=== PATIENT | male | born 1990 | race Caucasian/White ===

== ENCOUNTER 2017-11-29 16:02 | Emergency (ER) | payer OTHER, SELFPAY ==
[2017-11-29 16:03] VITALS: BP 163/86; PULSE 101; RESP 14; TEMP 36.8; O2SAT 99; BMI 23.5
--- NOTE | 2017-11-29 16:07 | EKG12_ITS ---
Test Reason : Blood Pressure : / mmHG Vent. Rate : 107 BPM Atrial Rate : 107 BPM P-R Int : 146 ms QRS Dur : 090 ms QT Int : 328 ms P-R-T Axes : 083 077 069 degrees QTc Int : 437 ms Sinus tachycardia Otherwise normal ECG Confirmed by ROBBIE BIGGS, JOHANNA ([id number]), desk editor JORGE CASTRO ([id number] on 12/02/2017 1:15:43 PM Referred By: ANURADHA Confirmed By:JOHANNA AVALOS MD
--- NOTE | 2017-11-29 16:26 | NURSING ---
NO OLD EKGS
[2017-11-29 16:32] LABS: Absolute Lymphocyte Count 3.74 X10^3/ul (0.83-4.51); Absolute Neutrophil Count 7.8 X10^3/uL (2.0-7.7); Basophil# 0.04 X10^3/uL; Basophil% 0.3 % (0-1); Eosinophil# 0.16 X10^3/uL; Eosinophils% 1.2 % (0-5); Hematocrit 48.2 % (40-54); Hemoglobin 15.9 g/dl (13.0-16.5); Lymphocyte # 3.74 X10^3/ul (4.0); Lymphocyte % 28.5 % (19-41); Mean Corpuscular Hgb 29.6 pg (27.0-32.0); Mean Corpuscular Volume 89.6 fL (80-94); Monocyte# 1.31 X10^3/uL; Neutrophil # 7.84 X10^3/uL (2.7-7.7); Neutrophil % 59.9 % (47-70); Platelet Count 266 K/mm3 (150-450); RBC Distribution Width CV 12.5 % (11.6-14.6); RBC Distribution Width SD 40.6 fl (35.1-43.9); Red Blood Count 5.38 M/mm3 (4.6-6.2); White Blood Count 13.1 K/mm3 (4.4-11.0)
[2017-11-29 16:33] LABS: POSITIVE COUNT NO; POSITIVE DIFFERENTIAL NO; POSITIVE MORPHOLOGY NO
--- NOTE | 2017-11-29 16:46 | RAD_ITS ---
STUDY: X-RAY CHEST REASON FOR EXAM: Male, 27 years old. Substernal chest pain TECHNIQUE: Single AP portable view of the chest. COMPARISON: None. FINDINGS: The lungs are clear and expanded. There is no demonstrated pleural abnormality. Normal size heart. Normal mediastinum and lonny. Normal visualized pulmonary arteries. Normal visualized aortic arch and descending thoracic aorta. Normal visualized thoracic spine. Normal visualized ribs, clavicles, and shoulders. There is no demonstrated abnormality of the visualized soft tissue structures of the upper abdomen. RAD/Chest 1 View (Portable) IMPRESSION: Normal x-ray examination of the chest. Electronically Signed: Hugh Lazaro MD at 17:21 EDT , Service support ,
[2017-11-29 16:47] LABS: Anion Gap 8 (5-15); BUN 19 mg/dL (7-18); BUN/Creat Ratio 18.6 RATIO (10-20); Calcium,Total 9.3 mg/dL (8.5-10.1); Chloride 105 mmol/L (98-107); Creatinine, Serum 1.02 mg/dL (0.70-1.30); EST Glomerular Filtration Rate 95 mL/min (>60); Est Glom Filt Rate - Afr Amer 114 mL/min (>60); Estimated Creatinine Clearance 121.51 ml/min; Glucose 96 mg/dL (74-106); Potassium 3.9 mmol/L (3.5-5.1); Sodium Level 138 mmol/L (136-145)
[2017-11-29 17:03] VITALS: BP 119/80; PULSE 84; RESP 22; O2SAT 99
--- NOTE | 2017-11-29 17:03 | ED.VISSUMM ---
- ER Visit Summary Date of Service: 11/29/17 Chief Complaint: Chest pain History of Present Illness: The patient is a 27 M who woke at 4 AM this morning with right-sided anterior chest pain. He was laying on his right side at the time. Patient states he rolled to his back where he noted increased pain with deep breath, but did not note shortness of breath. Pain is persisted throughout the day. He describes generalized ache across the chest with intermittent sharp pain, worse with deep breath. There is no pain with movement of his arms. There has been no recent injury. Patient has no DVT or PE risk factors. He has no cardiac risk factors. Physical Examination: Blood pressure in triage is 163/86, other vitals unremarkable. Blood pressure at time of my examination is 126/81. Head and neck examination is unremarkable. Heart is regular rate and rhythm. Lung sounds are clear. Abdomen is soft nontender. Lower extremity examination was no calf tenderness or edema. Test Results: EKG is sinus tach at 107 with no sign of acute ischemia. CBC reveals white count 13.1 with a normal differential. Chemistry studies normal. Troponin negative. D-dimer is obtained and normal at 0.30. Emergency Department Course and Treatment: Patient is given a dose of Toradol. On repeat evaluation is resting comfortably. Test results are discussed with patient and at bedside. He will take Tylenol or ibuprofen at home as needed and return for any worsening symptoms. Treatment Plan: [] Disposition: Discharge Impression: Chest wall strain This note was generated with [employer] dictation software. It may contain incorrect words, spelling, and punctuation that were not noted in review of the chart prior to signing ED Disposition - Plan for ED Patient: Chief Complaint: Chest Pain Referrals: Care Physician,No Primary [Primary Care Provider] -
--- NOTE | 2017-11-29 18:30 | ED.DEP ---
ED Disposition - Plan for ED Patient: Disposition: Home or Assisted Living Chief Complaint: Chest Pain Instructions: ED Strain Chest Wall Referrals: Reinaldo Yanez DO [STAFF PHYSICIAN] - As Needed
[2017-11-29] MEDS: Ketorolac 30 MG/ML Syringe IV (18:33)
[2017-11-29 18:41] VITALS: BP 110/68; PULSE 72; RESP 20; O2SAT 99
== END 2017-11-29 18:44 | disposition home or self-care (01) ==
PROVIDERS: Emergency Provider Emergency Medicine
DX: S29.011A Strain of muscle and tendon of front wall of thorax, initial encounter (principal); X58.XXXA Exposure to other specified factors, initial encounter; Y93.9 Activity, unspecified; Y92.9 Unspecified place or not applicable; K51.90 Ulcerative colitis, unspecified, without complications
CPT/HCPCS: 71045; 80048; 84484; 85025; 85379; 93005; 96374; 99283; A4216